=== PATIENT | female | born 1995 | race Caucasian/White ===

== ENCOUNTER 2016-12-03 07:26 | Day surgery (SDC) | payer OTHER | END 2016-12-03 13:51 | disposition home or self-care (01) | LOC: SDCH 07:26 | DX: D12.6 Benign neoplasm of colon, unspecified (principal); K44.9 Diaphragmatic hernia without obstruction or gangrene; K29.50 Unspecified chronic gastritis without bleeding; K21.0 Gastro-esophageal reflux disease with esophagitis; Z88.1 Allergy status to other antibiotic agents; J45.909 Unspecified asthma, uncomplicated; K59.00 Constipation, unspecified; R19.7 Diarrhea, unspecified; M41.9 Scoliosis, unspecified; E66.9 Obesity, unspecified | CPT/HCPCS: J2704 ==